=== PATIENT | male | born 1995 | race Caucasian/White ===

== ENCOUNTER 2023-07-30 16:34 | Outpatient (CLI) | payer BC, SELFPAY ==
--- NOTE | ~2023-07-30 | XR_ITS ---
EXAMINATION: XR ankle LT min 3V DATE: 07/30/2023 17:51 INDICATION: Left ankle sprain TECHNIQUE: Anteroposterior, oblique, mortise, and lateral views of the left ankle were obtained. COMPARISON: None. FINDINGS: Alignment is normal. No fracture. Joint spaces are well maintained. Small Achilles calcaneal spur. N o ankle joint effusion. The soft tissues are unremarkable. IMPRESSION: 1. No acute osseous abnormality. Reviewed, dictated and finalized at location A. H SUPERVISOR
== END 2023-07-30 16:35 | disposition home or self-care (01) ==
LOC: CHSIMG 16:40
PROVIDERS: PCP Family Medicine; Visit Provider Physician Assistant
DX: S93.402A Sprain of unspecified ligament of left ankle, initial encounter (principal)
CPT/HCPCS: 73610

== ENCOUNTER 2025-04-23 07:06 | Emergency (ER) | payer OTHER, SELFPAY ==
--- NOTE | ~2025-04-23 | XR_ITS ---
Examination: XR hand RT min 3V Clinical History: dog bite, Rt. hand dorsal contusion/ pain Comparison: None Technique: 3 views right hand Findings/impression: 1. No radiopaque foreign body. 2. No fracture or other acute bony abnormality. 3. 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 Reviewed, dictated and finalized at location R.
[2025-04-23 07:06] VITALS: BP 160/102; PULSE 74; RESP 18; TEMP 36.8; O2SAT 97
--- NOTE | 2025-04-23 07:12 | PC.NURSE ---
ERP aware of elevated blood pressure, patient takes blood pressure medication, took it this morning shortly before arrival.
--- NOTE | 2025-04-23 07:15 | PC.NURSE ---
Patient reports Animal control have already filled out the dog bite form.
--- NOTE | 2025-04-23 07:18 | ED_ITS ---
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 No other injuries. unknown last tetanus Related Data Allergies Allergy/AdvReac Type Severity Reaction Status Date / Time No Known Allergies Allergy Verified 04/23/25 07:09 Review of Systems Review of Systems: All systems reviewed & are unremarkable except as noted in HPI and below Exam Narrative: General appearance: Well-developed, well-nourished Skin: Normal color Vascular: Normal peripheral pulses, normal capillary refill. 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, no gross motor deficit Course Vital Signs Vital signs: Vital Signs Temperature 36.8 C 04/23/25 07:06 Pulse Rate 74 04/23/25 07:06 Respiratory Rate 18 04/23/25 07:06 Blood Pressure 160/102 H 04/23/25 07:06 Pulse Oximetry 97 04/23/25 07:06 Oxygen Delivery Room Air 04/23/25 07:06 Temperature 36.8 C 04/23/25 07:06 Pulse Rate 74 04/23/25 07:06 Respiratory Rate 18 04/23/25 07:06 Blood Pressure 160/102 H 04/23/25 07:06 Pulse Oximetry 97 04/23/25 07:06 Oxygen Delivery Room Air 04/23/25 07:06 MDM - Animal Bite MDM Narrative Medical decision making narrative: dog bite, tetanus shot, right hand x-ray showed no acute osseous abnormality, discharged on Augmentin Differential Diagnosis Differential diagnosis: Likely dog bite Imaging Data My impression: x-ray right hand showed no acute osseous abnormality in Critical Care Time Critical Care Time Critical Care Time: No Discharge Plan Discharge Clinical Impression: Dog bite Patient Disposition: Home Condition: Stable Instructions: Antibiotic Form, Animal Bite (ED) Patient Language: Italian Prescriptions: New amoxicillin-pot clavulanate [Augmentin] 500-125 mg tablet 1 tablet PO Q8H Qty: 21 0RF Follow-up/Referrals: Anabel,MD Damaso [Primary Care Provider, Family Practice]
[2025-04-23] MEDS: TETANUS,DIPHTHERIA,AC PERTUSSIS ADULT 0.5 ML (ADACEL) IM (07:25)
[2025-04-23 07:38] VITALS: BP 148/85; PULSE 76; RESP 18; TEMP 36.8; O2SAT 98
== END 2025-04-23 07:38 | disposition home or self-care (01) ==
PROVIDERS: Emergency Provider Emergency Medicine; PCP Family Medicine
DX: S61.451A Open bite of right hand, initial encounter (principal); W54.0XXA Bitten by dog, initial encounter; Z23 Encounter for immunization
CPT/HCPCS: 73130; 90471; 90715; 99283